=== PATIENT | male | born 1965 | race Caucasian/White ===

== ENCOUNTER → 2024-10-16 | Outpatient (CLI) | payer BC, SELFPAY ==
--- NOTE | 2024-10-16 10:00 | XR_ITS ---
Exam: MRI knee without contrast, right Date and time of exam: October 16, 2024 1003 hours INDICATIONS: Diagnosis unilateral primary osteoarthritis right knee, injury to the knee 3 months ago followed by anterior medial knee pain joint clicking swelling instability Technique: Multiple axial, coronal, and sagittal sections on the knee have been obtained. T2-Weighted sagittal, fat-suppressed images, TR 3,500, TE 62, T2 weighted coronal fat-saturated images, TR 3,500, TE 62 Proton density sagittal sections, TR 1800, TE 31. T-1 weighted coronal images, TR 524, TE 13.0 Findings: Medial meniscus anterior horn intact. Medial meniscus, body is horizontal linear tear communicating inferior articular surface near the inner margin. Posterior horn medial meniscus horizontal linear tear communicating inferior articular surface sagittal image 6. Lateral meniscus anterior horn truncation inner margin, horizontal linear tear Lateral meniscus, body is intact Posterior horn lateral meniscus is intact Anterior cruciate ligament mild strain Posterior cruciate ligament appears intact. Knee effusion is mild. Quadriceps and patellar tendons appear intact. There is no evidence of tendinosis. Inflammatory change or fracture of Hoffa's fat pad is not seen. Medial patellar facet demonstrates mild thinning. Lateral patellar facet cartilage demonstrates mild thinning. Trochlear cartilage demonstrates mild thinning. Marrow signal mild cystic change 11 mm in the distal femur posteriorly Medial collateral ligament appears intact. No meniscocapsular separation is seen. Illiotibial band and fibular collateral ligament are intact. Biceps femoris tendons appear intact. Medial femoral condylar articular cartilage demonstrates moderate thinning. Lateral femoral condylar articular cartilage demonstratesmoderate thinning. Tibial plateau cartilage demonstrates moderate thinning. Impression: Medial lateral meniscus tears as above Mild sprain anterior cruciate ligament
== END | disposition home or self-care (01) ==
LOC: SMRI 09:34
PROVIDERS: PCP Family Medicine; Referring Provider Family Medicine; Visit Provider Family Medicine
DX: S83.241A Other tear of medial meniscus, current injury, right knee, initial encounter (principal); S83.281A Other tear of lateral meniscus, current injury, right knee, initial encounter; S83.511A Sprain of anterior cruciate ligament of right knee, initial encounter; X58.XXXA Exposure to other specified factors, initial encounter
CPT/HCPCS: 73721